=== PATIENT | female | born 1995 | race Caucasian/White ===

== ENCOUNTER 2020-11-10 14:58 | Emergency (ER) | payer BC, SELFPAY ==
[2020-11-10 15:11] VITALS: BP 115/67; PULSE 77; RESP 18; TEMP 37.2; O2SAT 100
--- NOTE | 2020-11-10 15:35 | ED.EAR ---
HPI - Ear Problem General Chief complaint: Ear Stated complaint: left ear Time Seen by Provider: 11/10/20 15:28 Source: patient and RN notes reviewed Mode of arrival: ambulatory Limitations: no limitations History of Present Illness HPI Narrative: Patient presents today complaining of left ear pain x2 days with some muffled hearing. Denies drainage, fever, sore throat, cough, rhinorrhea, congestion, headache, nausea, vomiting, diarrhea. Currently rates her pain 1?2/10. She has tried no [id number] treatment prior to arrival. MD Complaint: ear pain Related Data Home Medications Medication Instructions Recorded Confirmed No Home Medications 11/10/20 11/10/20 Allergies Allergy/AdvReac Type Severity Reaction Status Date / Time No Known Allergies Allergy Verified 11/10/20 15:23 Review of Systems Review of Systems: Narrative: CONSTITUTIONAL: Denies body aches, fever, chills, or sweats. EYES: Denies visual changes, redness, or discharge. ENT: Denies rhinorrhea, congestion, sore throat. + Left ear pain CARDIOVASCULAR: Denies chest pain, palpitations, or edema. RESPIRATORY: Denies cough or dyspnea. GASTROINTESTINAL: Denies abdominal pain, nausea, vomiting, or diarrhea. GENITOURINARY: Denies dysuria or hematuria. SKIN: Denies rash, itching, or wounds. MUSCULOSKELETAL: Denies back pain, joint pain, or myalgia. NEUROLOGIC: Denies headache, numbness, tingling, or weakness. PSYCH: Denies depression or anxiety. PMFSH Comments At time of signature, I have reviewed and agree with nursing past medical, surgical, social and family history unless otherwise noted. Please see nursing chart for further information. There is no relevant family history pertinent to the presenting complaint Exam Narrative: Exam Narrative: GENERAL: Well-appearing, well-nourished, and in no acute distress. HEAD: Normocephalic, atraumatic. EYES: EOMI. No redness or drainage. Conjunctivae normal. ENT: Mucous membranes pink and moist. Nares clear. No rhinorrhea. Bilateral TMs normal with small amount of clear fluid behind each. Throat normal. Uvula midline. NECK: Normal AROM. CHEST: No respiratory distress. EXTREMITIES: Normal range of motion. No edema. SKIN: Warm, dry, no rash. Capillary refill normal. Normal skin turgor. NEURO: No focal deficits. Alert and oriented x3. Gait steady. PSYCH: Normal affect. No signs of depression or anxiety. Course Vital Signs Vital signs: Vital Signs Temperature 99.0 F 11/10/20 15:11 Pulse Rate 77 11/10/20 15:11 Respiratory Rate 18 11/10/20 15:11 Blood Pressure 115/67 11/10/20 15:11 Pulse Oximetry 100 11/10/20 15:11 Temperature 99.0 F 11/10/20 15:11 Pulse Rate 77 11/10/20 15:11 Respiratory Rate 18 11/10/20 15:11 Blood Pressure 115/67 11/10/20 15:11 Pulse Oximetry 100 11/10/20 15:11 At time of signature, I have reviewed and agree with nursing past medical, surgical, social and family history unless otherwise noted. Please see nursing chart for further information. There is no relevant family history pertinent to the presenting complaint Medical Decision Making Differential Diagnosis Differential Diagnosis: Otitis media, otitis externa, ruptured TM, serous otitis, eustachian tube dysfunction, cerumen impaction Vital Signs Vital Signs: Vital Signs Temperature 99.0 F 11/10/20 15:11 Pulse Rate 77 11/10/20 15:11 Respiratory Rate 18 11/10/20 15:11 Blood Pressure 115/67 11/10/20 15:11 Pulse Oximetry 100 11/10/20 15:11 Temperature 99.0 F 11/10/20 15:11 Pulse Rate 77 11/10/20 15:11 Respiratory Rate 18 11/10/20 15:11 Blood Pressure 115/67 11/10/20 15:11 Pulse Oximetry 100 11/10/20 15:11 Critical Care Time Critical Care Time Critical Care Time: No Discharge Plan Discharge Clinical Impression: Ear pain, left Patient Disposition: Home, Self-Care Condition: Stable Instructions: Earache (ED) Additional Inst
== END 2020-11-10 15:41 | disposition home or self-care (01) ==
PROVIDERS: Emergency Provider Nurse Practitioner; PCP Nurse Practitioner Family
DX: H92.02 Otalgia, left ear (principal)
CPT/HCPCS: 99211; G0463